=== PATIENT | female | born 1985 | race African-American/Black ===

== ENCOUNTER 2016-09-20 08:05 | Emergency (ER) | payer SELFPAY ==
[~2016-09-20] VITALS: Ht 167.6 cm; Wt 120.0 kg
[2016-09-20 08:07] VITALS: BP 133/84; PULSE 84; RESP 14; TEMP 98.2; O2SAT 98
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
[2016-09-20] MEDS ORDERED: NAPROXEN 500 MG TAB PO ONE (08:30)
--- NOTE | 2016-09-20 09:22 | RADRPT ---
EXAM DATE/TIME: 09/20/2016 08:49 [place] COMPARISON: No previous studies available for comparison. INDICATIONS : Fell down stairs pain lateral ankle. MEDICAL HISTORY : None. SURGICAL HISTORY : None. ENCOUNTER: Initial ACUITY: 2 days PAIN SCORE: 9/10 LOCATION: Left ankle. FINDINGS: Three view exam was performed of the left ankle. The bony structures are in normal alignment. No ev idence of fracture, dislocation, or soft tissue swelling. The ankle mortise is intact. No radiopaqu e foreign bodies are seen. Bony mineralization is normal. CONCLUSION: Negative for fracture or dislocation. Followup in 7-10 days is suggested if symptoms persist. Jagdish Holland MD FACR on September 20, 2016 at 9:20 Board Certified Radiologist. This report was verified electronically.
== END 2016-09-20 10:29 | disposition home or self-care (01) ==
LOC: NEPB 08:05
DX: S93.402A Sprain of unspecified ligament of left ankle, initial encounter (principal); W10.8XXA Fall (on) (from) other stairs and steps, initial encounter
CPT/HCPCS: 73610; 99283; E0113; L1906

== ENCOUNTER 2016-10-11 10:02 | Emergency (ER) | payer SELFPAY ==
[~2016-10-11] VITALS: Ht 167.6 cm; Wt 118.0 kg
[2016-10-11 10:04] VITALS: BP 144/82; PULSE 95; RESP 14; TEMP 98.1; O2SAT 99
[2016-10-11 10:39] LABS: AUTOMATED NEUTROPHIL # 4.3 TH/MM3 (1.8-7.7); BASOPHIL % 0.7 % (0.0-2.0); EOSINOPHIL # 0.1 TH/MM3 (0-0.4); EOSINOPHIL % 0.9 % (0.0-4.0); HEMATOCRIT 36.5 % (35.0-46.0); HEMO FLAGS DIFF FINAL; LYMPH % 24.1 % (9.0-44.0); LYMPHOCYTE # 1.6 TH/MM3 (1.0-4.8); MEAN CELL VOLUME 81.7 FL (80.0-100.0); MEAN CORPUSCULAR HEMOGLOBIN 27.6 PG (27.0-34.0); MEAN CORPUSCULAR HGB CONC 33.7 % (32.0-36.0); MONO % 8.6 % (0.0-8.0); NEUT % 65.7 % (16.0-70.0); PLATELET COUNT 251 TH/MM3 (150-450); RED BLOOD COUNT 4.47 MIL/MM3 (4.00-5.30); WHITE BLOOD COUNT 6.5 TH/MM3 (4.0-11.0)
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
[2016-10-11] MEDS ORDERED: ORTH1TAB PO (11:57)
[2016-10-11 12:22] LABS: BACTERIA, URINE MANY /hpf; BLOOD, URINE LARGE (NEG); COMMENT (UR) CULTURE INDICATED; CULTURE IF INDICATED CULTURE INDICATED; GLUCOSE,URINE NEG (NEG); KETONE, URINE NEG (NEG); MUCUS URINE FEW /lpf (OCC); PH, URINE 5.5 (5.0-8.5); SQUAMOUS EPITHELIAL CELL URINE 1 /hpf (0-5); URINE COLOR YELLOW (YELLW/STRAW)
[2016-10-11 12:24] LABS: NITRITE,URINE POS (NEG)
[2016-10-11] MEDS ORDERED: metroNIDAZOLE 500 MG TAB PO ONE (12:30)
[2016-10-11] MEDS ORDERED: BACT800T5 PO (12:31)
[2016-10-11 13:47] LABS: CHLAMYDIA PCR NOT DETECTED (NOT DETECT); NEISSERIA PCR NOT DETECTED (NOT DETECT)
== END 2016-10-11 12:51 | disposition home or self-care (01) ==
LOC: NED 10:02 → NEPC 12:51
DX: N93.9 Abnormal uterine and vaginal bleeding, unspecified (principal); A59.01 Trichomonal vulvovaginitis; N39.0 Urinary tract infection, site not specified; B96.20 Unspecified Escherichia coli [E. coli] as the cause of diseases classified elsewhere; R31.9 Hematuria, unspecified
CPT/HCPCS: 81001; 84703; 85025; 87077; 87086; 87186; 87210; 87491; 87591; 99284

== ENCOUNTER 2017-06-15 23:19 | Emergency (ER) | payer SELFPAY ==
[~2017-06-15 23:19] MED LIST: BACT800T5 PO; ORTH1TAB PO
[2017-06-15 23:20] VITALS: BP 125/73; PULSE 84; RESP 16; TEMP 98.1; O2SAT 98
[2017-06-15 23:46] VITALS: BP 145/80; PULSE 80; RESP 16; O2SAT 100
[2017-06-15] MEDS ORDERED: SODIUM CHLOR 0.9% 1000 ML INJ 1,000 ML IV SCH (23:55)
[2017-06-15 23:58] VITALS: O2SAT 97
[2017-06-16] MEDS ORDERED: LIDOCAINE VISCOUS 2% SOLN 15 ML UDC PO ONE
[2017-06-16] MEDS ORDERED: MORPHINE SULFATE 4 MG/ML INJ IV PUSH ONE
[2017-06-16] MEDS ORDERED: FAMOTIDINE 20 MG/2 ML VIAL IV PUSH ONE
[2017-06-16] MEDS ORDERED: ONDANSETRON HCL 4 MG/2 ML VIAL IVP ONE
[2017-06-16] MEDS ORDERED: ALUMINUM/MAGNESIUM/SIMETH 30 ML CUP PO ONE
[2017-06-16] MEDS ORDERED: SODIUM CHLORIDE 0.9% FLUSH 10 ML FLUSH IV FLUSH PRN
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
[2017-06-16 00:33] LABS: AUTOMATED NEUTROPHIL # 4.6 TH/MM3 (1.8-7.7); BASOPHIL % 0.5 % (0.0-2.0); EOSINOPHIL # 0.1 TH/MM3 (0-0.4); EOSINOPHIL % 1.4 % (0.0-4.0); HEMATOCRIT 32.5 % (35.0-46.0); HEMO FLAGS DIFF FINAL; LYMPH % 29.6 % (9.0-44.0); LYMPHOCYTE # 2.3 TH/MM3 (1.0-4.8); MEAN CORPUSCULAR HEMOGLOBIN 26.7 PG (27.0-34.0); MEAN CORPUSCULAR HGB CONC 32.6 % (32.0-36.0); MONO % 8.4 % (0.0-8.0); NEUT % 60.1 % (16.0-70.0); PLATELET COUNT 258 TH/MM3 (150-450); RED BLOOD COUNT 3.96 MIL/MM3 (4.00-5.30); RED CELL DISTRIBUTION WIDTH 16.6 % (11.6-17.2); WHITE BLOOD COUNT 7.7 TH/MM3 (4.0-11.0)
[2017-06-16 00:45] LABS: APTT (PATIENT) 23.1 SEC (24.3-30.1); PROTHROMBIN TIME - PATIENT 10.9 SEC (9.8-11.6)
[2017-06-16 01:07] LABS: ALT (GPT) 29 U/L (10-53); ANION GAP 8 MEQ/L (5-15); AST (GOT) 30 U/L (15-37); BICARBONATE 27.6 MEQ/L (21.0-32.0); BLOOD UREA NITROGEN 9 MG/DL (7-18); CHLORIDE 106 MEQ/L (98-107); GLOMERULAR FILTRATION RATE 86 ML/MIN (>89); POTASSIUM 3.2 MEQ/L (3.5-5.1); SODIUM (NA) 142 MEQ/L (136-145)
[2017-06-16 01:10] LABS: ALKALINE PHOSPHATASE 74 U/L (45-117); TOTAL BILIRUBIN ADULT 0.2 MG/DL (0.2-1.0)
[2017-06-16 01:19] LABS: BACTERIA, URINE RARE /hpf; BLOOD, URINE NEG (NEG); COMMENT (UR) CULT NOT INDICATED; CULTURE IF INDICATED CULT NOT INDICATED; GLUCOSE,URINE NEG (NEG); KETONE, URINE NEG (NEG); NITRITE,URINE NEG (NEG); SQUAMOUS EPITHELIAL CELL URINE 5 /hpf (0-5); URINE COLOR LIGHT-YELLOW (YELLW/STRAW)
[2017-06-16] MEDS ORDERED: IOHEXOL 350 MG/ML 10 ML VIAL (for RAD DIAG) IVCONTRAST ONE (01:22)
[2017-06-16] MEDS ORDERED: POTASSIUM CHLORIDE 10 MEQ CONTROLLED RELEASE TAB PO ONE (01:45)
--- NOTE | 2017-06-16 01:51 | RADRPT ---
EXAM DATE/TIME: 06/16/2017 01:17 [facility] COMPARISON: No previous studies available for comparison. INDICATIONS : Upper abdominal pain with vomiting. IV CONTRAST: 95 cc Omnipaque 350 (iohexol) IV ORAL CONTRAST: No oral contrast ingested. RADIATION DOSE: 16.89 CTDIvol (mGy) MEDICAL HISTORY : None SURGICAL HISTORY : section. ENCOUNTER: Initial ACUITY: 1 day PAIN SCALE: 1/10 LOCATION: Bilateral upper quadrant TECHNIQUE: Volumetric scanning of the abdomen and pelvis was performed. Using automated exposure control and ad justment of the mA and/or kV according to patient size, radiation dose was kept as low as reasonably achievable to obtain optimal diagnostic quality images. DICOM format image data is available electro nically for review and comparison. FINDINGS: LOWER LUNGS: The visualized lower lungs are clear. LIVER: Homogeneous density without lesion. There is no dilation of the biliary tree. No calcified gallston es. SPLEEN: Normal size without lesion. PANCREAS: Within normal limits. KIDNEYS: Normal in size and shape. 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 There i s no concerning mass, stone or hydronephrosis. ADRENAL GLANDS: Within normal limits. VASCULAR: There is no aortic aneurysm. BOWEL/MESENTERY: The stomach, small bowel, and colon demonstrate no acute abnormality. There is no free intraperitone al air or fluid. Normal appendix. ABDOMINAL WALL: Within normal limits. RETROPERITONEUM: There is no lymphadenopathy. BLADDER: No wall thickening or mass. REPRODUCTIVE: Within normal limits. INGUINAL: There is no lymphadenopathy or hernia. MUSCULOSKELETAL: Within normal limits for patient age. CONCLUSION: 1. No acute abnormality demonstrated. 2. Incidentally seen benign angiomyolipoma of the upper pole of the left kidney. Talha Stringer MD on June 16, 2017 at 1:46 Board Certified Radiologist. This report was verified electronically.
[2017-06-16] MEDS ORDERED: CARA1SUS3 PO (02:03)
[2017-06-16] MEDS ORDERED: ZOFR4TAB PO (02:04)
== END 2017-06-16 02:35 | disposition home or self-care (01) ==
LOC: NEPC 23:19
DX: R10.10 Upper abdominal pain, unspecified (principal); R11.2 Nausea with vomiting, unspecified; D17.71 Benign lipomatous neoplasm of kidney
CPT/HCPCS: 74177; 80053; 81001; 83690; 84703; 85025; 85610; 85730; 96361; 96374; 96375; 99285; J2270; J2405; J7030; Q9967

== ENCOUNTER 2017-07-27 07:55 | Emergency (ER) | payer MEDICAID ==
[~2017-07-27] VITALS: Ht 167.6 cm; Wt 107.0 kg
[~2017-07-27 07:55] MED LIST changes: -BACT800T5 PO; +CARA1SUS3 PO; -ORTH1TAB PO; +ZOFR4TAB PO
[2017-07-27 08:08] VITALS: BP 116/72; PULSE 63; RESP 16; TEMP 97.6
[2017-07-27 08:36] VITALS: BP 99/67; PULSE 60; RESP 18; TEMP 98.1; O2SAT 99
[2017-07-27] MEDS ORDERED: SODIUM CHLOR 0.9% 1000 ML INJ 1,000 ML IV SCH (09:03)
[2017-07-27] MEDS ORDERED: KETOROLAC TROMETHAMINE 30 MG/ML (IVP) VIAL IVP ONE (09:15)
[2017-07-27] MEDS ORDERED: ONDANSETRON HCL 4 MG/2 ML VIAL IVP ONE (09:15)
[2017-07-27] MEDS ORDERED: SODIUM CHLORIDE 0.9% FLUSH 10 ML FLUSH IV FLUSH PRN (09:15)
[2017-07-27 09:47] LABS: AUTOMATED NEUTROPHIL # 2.5 TH/MM3 (1.8-7.7); BASOPHIL % 0.7 % (0.0-2.0); EOSINOPHIL # 0.1 TH/MM3 (0-0.4); EOSINOPHIL % 2.4 % (0.0-4.0); HEMATOCRIT 32.6 % (35.0-46.0); HEMO FLAGS DIFF FINAL; LYMPH % 38.1 % (9.0-44.0); LYMPHOCYTE # 1.9 TH/MM3 (1.0-4.8); MEAN CELL VOLUME 83.1 FL (80.0-100.0); MEAN CORPUSCULAR HEMOGLOBIN 27.1 PG (27.0-34.0); MEAN CORPUSCULAR HGB CONC 32.7 % (32.0-36.0); MONO % 9.9 % (0.0-8.0); NEUT % 48.9 % (16.0-70.0); PLATELET COUNT 248 TH/MM3 (150-450); RED BLOOD COUNT 3.93 MIL/MM3 (4.00-5.30); RED CELL DISTRIBUTION WIDTH 15.4 % (11.6-17.2); WHITE BLOOD COUNT 5.1 TH/MM3 (4.0-11.0)
--- NOTE | 2017-07-27 10:12 | RADRPT ---
EXAM DATE/TIME: 07/27/2017 09:45 [facility] COMPARISON: No previous studies available for comparison. INDICATIONS : Pelvic pain. MEDICAL HISTORY : Pelvic pain. SURGICAL HISTORY : section. Right hand surgery. Left shoulder surgery. ENCOUNTER: Initial ACUITY: 1 day PAIN SCORE: 5/10 LOCATION: Bilateral pelvis MEASUREMENTS: UTERUS: 9.3 x 4.3 x 4.7 cm ENDOMETRIAL STRIPE: 6 mm RIGHT OVARY: 3.7 x 2.8 x 3.0 cm LEFT OVARY: 3.3 x 2.4 x 2.3 cm FINDINGS: UTERUS: The myometrium has homogeneous echotexture without mass. RIGHT OVARY: Ovary contains no mass or significant cystic lesion.Blood flow is intact. LEFT OVARY: Ovary contains no mass or significant cystic lesion. Blood flow is intact. MISCELLANEOUS: No free fluid. CONCLUSION: 1. Negative examination. Kendrick Holland MD on July 27, 2017 at 10:10 Board Certified Radiologist. This report was verified electronically.
[2017-07-27 10:13] LABS: ANION GAP 8 MEQ/L (5-15); AST (GOT) 12 U/L (15-37); BICARBONATE 26.9 MEQ/L (21.0-32.0); BLOOD UREA NITROGEN 7 MG/DL (7-18); CHLORIDE 105 MEQ/L (98-107); GLOMERULAR FILTRATION RATE 93 ML/MIN (>89); POTASSIUM 3.4 MEQ/L (3.5-5.1); SODIUM (NA) 140 MEQ/L (136-145)
[2017-07-27 10:14] LABS: ALT (GPT) 20 U/L (10-53)
[2017-07-27 10:16] LABS: ALKALINE PHOSPHATASE 75 U/L (45-117); TOTAL BILIRUBIN ADULT 0.3 MG/DL (0.2-1.0)
[2017-07-27 11:05] LABS: BACTERIA, URINE RARE /hpf; BLOOD, URINE NEG (NEG); COMMENT (UR) CULTURE INDICATED; CULTURE IF INDICATED CULTURE INDICATED; GLUCOSE,URINE NEG (NEG); KETONE, URINE NEG (NEG); NITRITE,URINE NEG (NEG); SQUAMOUS EPITHELIAL CELL URINE 3 /hpf (0-5); URINE COLOR LIGHT-YELLOW (YELLW/STRAW)
[2017-07-27] MEDS ORDERED: CIPR-9 PO (11:49)
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
[2017-07-27 12:29] VITALS: BP 107/58
== END 2017-07-27 12:28 | disposition home or self-care (01) ==
LOC: NEPC 07:55
DX: N30.00 Acute cystitis without hematuria (principal)
CPT/HCPCS: 76856; 80053; 81001; 84703; 85025; 87086; 93975; 96361; 96374; 96375; 99285; J1885; J2405; J7030

== ENCOUNTER 2017-07-28 02:03 | Emergency (ER) | payer MEDICAID ==
[~2017-07-28] VITALS: Ht 167.6 cm; Wt 105.0 kg
[~2017-07-28 02:03] MED LIST changes: +CIPR-9 PO
[2017-07-28 02:04] VITALS: BP 171/103; PULSE 117; RESP 18; TEMP 97.9; O2SAT 98
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
[2017-07-28] MEDS ORDERED: ONDANSETRON HCL 4 MG/2 ML VIAL IV PUSH ONE (02:45)
[2017-07-28] MEDS ORDERED: SODIUM CHLOR 0.9% 1000 ML INJ 1,000 ML IV ONE (02:45)
--- NOTE | 2017-07-28 03:17 | RADRPT ---
EXAM DATE/TIME: 07/28/2017 02:48 [facility] COMPARISON: CT ABDOMEN & PELVIS W CONTRAST, June 16, 2017, 1:17. INDICATIONS : Abdomen pain with nausea and vomiting. ORAL CONTRAST: No oral contrast ingested. RADIATION DOSE: 16.64 CTDIvol (mGy) MEDICAL HISTORY : None SURGICAL HISTORY : section. ENCOUNTER: Initial ACUITY: 1 day PAIN SCALE: 6/10 LOCATION: Bilateral abdomen TECHNIQUE: Volumetric scanning of the abdomen and pelvis was performed. Using automated exposure control and ad justment of the mA and/or kV according to patient size, radiation dose was kept as low as reasonably achievable to obtain optimal diagnostic quality images. DICOM format image data is available electro nically for review and comparison. FINDINGS: LOWER LUNGS: The visualized lower lungs are clear. LIVER: Homogeneous density without lesion. There is no dilation of the biliary tree. No calcified gallston es. SPLEEN: Normal size without lesion. PANCREAS: Within normal limits. KIDNEYS: Normal in size and shape. There is no mass, stone, or hydronephrosis other than stable left-sided an giomyolipoma. ADRENAL GLANDS: Within normal limits. VASCULAR: There is no aortic aneurysm. BOWEL/MESENTERY: The stomach, small bowel, and colon demonstrate no acute abnormality. There is no free intraperitone al air or fluid. ABDOMINAL WALL: Within normal limits. RETROPERITONEUM: There is no lymphadenopathy. BLADDER: No wall thickening or mass. REPRODUCTIVE: Within normal limits. The left ovary is again slightly into superiorly displaced anterior to the ilio psoas muscle, but unchanged. INGUINAL: There is no lymphadenopathy or hernia. MUSCULOSKELETAL: Within normal limits for patient age. CONCLUSION: Normal examination. The appendix is normal. Rod Flores MD on July 28, 2017 at 3:13 Board Certified Radiologist. This report was verified electronically.
== END 2017-07-28 04:08 | disposition home or self-care (01) ==
LOC: NEPE 02:03
DX: K29.00 Acute gastritis without bleeding (principal); Z79.899 Other long term (current) drug therapy
CPT/HCPCS: 74176; 96374; 99285; J2405; J7030

== ENCOUNTER 2018-01-05 18:57 | Emergency (ER) | payer SELFPAY ==
[~2018-01-05] VITALS: Ht 170.2 cm; Wt 104.5 kg
[2018-01-05 19:18] VITALS: BP 116/67; PULSE 76; RESP 16; TEMP 98; O2SAT 99
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
[2018-01-05] MEDS ORDERED: SODIUM CHLORIDE 0.9% FLUSH 10 ML FLUSH IV FLUSH PRN (19:45)
[2018-01-05 20:54] LABS: BASOPHIL # 0.1 TH/MM3 (0-0.2); BASOPHIL % 1.2 % (0.0-2.0); EOSINOPHIL # 0.3 TH/MM3 (0-0.4); EOSINOPHIL % 4.7 % (0.0-4.0); HEMATOCRIT 31.3 % (35.0-46.0); HEMOGLOBIN 10.3 GM/DL (11.6-15.3); LYMPH % 33.7 % (9.0-44.0); MEAN CELL VOLUME 84.8 FL (80.0-100.0); MEAN CORPUSCULAR HGB CONC 33.1 % (32.0-36.0); MEAN PLATELET VOLUME 9.3 FL (7.0-11.0); MONO % 9.9 % (0.0-8.0); MONOCYTE # 0.6 TH/MM3 (0-0.9); NEUT % 50.5 % (16.0-70.0); PLATELET COUNT 274 TH/MM3 (150-450); RED BLOOD COUNT 3.69 MIL/MM3 (4.00-5.30); RED CELL DISTRIBUTION WIDTH 17.1 % (11.6-17.2); WHITE BLOOD COUNT 5.9 TH/MM3 (4.0-11.0)
[2018-01-05 20:56] LABS: AMORPHOUS SEDIMENT, URINE RARE; BACTERIA, URINE RARE /hpf; BILIRUBIN, URINE NEG (NEG); BLOOD, URINE NEG (NEG); GLUCOSE,URINE NEG (NEG); KETONE, URINE NEG (NEG); MUCUS URINE FEW /lpf (OCC); NITRITE,URINE NEG (NEG); SQUAMOUS EPITHELIAL CELL URINE 22 /hpf (0-5); URINE COLOR YELLOW (YELLW/STRAW); URINE LEUKOCYTE ESTERASE LARGE (NEG)
[2018-01-05 21:11] LABS: ALBUMIN 3.4 GM/DL (3.4-5.0); AST (GOT) 16 U/L (15-37); BICARBONATE 27.7 MEQ/L (21.0-32.0); BLOOD UREA NITROGEN 8 MG/DL (7-18); CALCIUM 8.5 MG/DL (8.5-10.1); CHLORIDE 107 MEQ/L (98-107); CREATININE 0.93 MG/DL (0.50-1.00); GLOMERULAR FILTRATION RATE 86 ML/MIN (>89); GLUCOSE,RANDOM 95 MG/DL (74-106); SODIUM (NA) 143 MEQ/L (136-145)
[2018-01-05 21:16] LABS: ALKALINE PHOSPHATASE 70 U/L (45-117); ALT (GPT) 19 U/L (10-53); TOTAL BILIRUBIN ADULT 0.3 MG/DL (0.2-1.0); TOTAL PROTEIN 7.1 GM/DL (6.4-8.2)
[2018-01-05 21:50] VITALS: RESP 18; TEMP 97
== END 2018-01-05 23:09 | disposition home or self-care (01) ==
LOC: NEPD 18:57
DX: R10.2 Pelvic and perineal pain (principal); N93.9 Abnormal uterine and vaginal bleeding, unspecified
CPT/HCPCS: 80053; 81001; 84702; 84703; 85025; 87086; 87210; 87491; 87591; 99284

== ENCOUNTER 2018-03-07 06:01 | Emergency (ER) | payer SELFPAY ==
[~2018-03-07] VITALS: Ht 170.2 cm; Wt 78.0 kg
[2018-03-07 06:10] VITALS: BP 139/82; PULSE 91; RESP 16; TEMP 98.1; O2SAT 99
[2018-03-07] MEDS ORDERED: SODIUM CHLOR 0.9% 1000 ML INJ 1,000 ML IV SCH (07:03)
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
[2018-03-07] MEDS ORDERED: KETOROLAC TROMETHAMINE 30 MG/ML (IVP) VIAL IV PUSH ONE (07:15)
[2018-03-07] MEDS ORDERED: SODIUM CHLORIDE 0.9% FLUSH 10 ML FLUSH IV FLUSH PRN (07:15)
[2018-03-07] MEDS ORDERED: METOCLOPRAMIDE HCL 10 MG/2 ML VIAL IV PUSH ONE (07:15)
[2018-03-07 08:06] LABS: BASOPHIL # 0.1 TH/MM3 (0-0.2); BASOPHIL % 0.6 % (0.0-2.0); EOSINOPHIL # 0.1 TH/MM3 (0-0.4); EOSINOPHIL % 1.2 % (0.0-4.0); HEMATOCRIT 35.2 % (35.0-46.0); HEMOGLOBIN 11.4 GM/DL (11.6-15.3); LYMPH % 24.5 % (9.0-44.0); LYMPHOCYTE # 2.2 TH/MM3 (1.0-4.8); MEAN CELL VOLUME 83.6 FL (80.0-100.0); MEAN CORPUSCULAR HEMOGLOBIN 27.1 PG (27.0-34.0); MEAN CORPUSCULAR HGB CONC 32.4 % (32.0-36.0); MEAN PLATELET VOLUME 9.3 FL (7.0-11.0); MONO % 5.9 % (0.0-8.0); MONOCYTE # 0.5 TH/MM3 (0-0.9); NEUT % 67.8 % (16.0-70.0); PLATELET COUNT 249 TH/MM3 (150-450); RED BLOOD COUNT 4.21 MIL/MM3 (4.00-5.30); WHITE BLOOD COUNT 8.8 TH/MM3 (4.0-11.0)
[2018-03-07 08:15] LABS: INTERNATIONAL NORMALIZED RATIO 1.1 RATIO; PROTHROMBIN TIME - PATIENT 10.9 SEC (9.8-11.6)
[2018-03-07 08:26] LABS: ALKALINE PHOSPHATASE 75 U/L (45-117); TOTAL BILIRUBIN ADULT 0.3 MG/DL (0.2-1.0); TOTAL PROTEIN 7.1 GM/DL (6.4-8.2)
[2018-03-07 08:27] LABS: ALBUMIN 3.3 GM/DL (3.4-5.0); ALT (GPT) 50 U/L (10-53); AST (GOT) 94 U/L (15-37); BICARBONATE 22.6 MEQ/L (21.0-32.0); BLOOD UREA NITROGEN 9 MG/DL (7-18); CALCIUM 8.4 MG/DL (8.5-10.1); CHLORIDE 110 MEQ/L (98-107); CREATININE 0.96 MG/DL (0.50-1.00); GLOMERULAR FILTRATION RATE 82 ML/MIN (>89); GLUCOSE,RANDOM 108 MG/DL (74-106); SODIUM (NA) 142 MEQ/L (136-145)
--- NOTE | 2018-03-07 08:57 | RADRPT ---
EXAM DATE: 03/07/2018 8:31 AM EDT AGE/SEX: 33 years / Female INDICATIONS: Right flank pain, nausea, vomiting. CLINICAL DATA: This is the patient's initial encounter. Patient reports that signs and symptoms have been present for 1 day and indicates a pain score of 4/10. MEDICAL/SURGICAL HISTORY: None. section. RADIATION DOSE: 8.46 CTDI (mGy) COMPARISON: [facility] – [place], CT ABDOMEN & PELVIS W/O CONTRAST, 07/28/2017. . TECHNIQUE: Multiple contiguous axial images were obtained through the abdomen. Images were obtained using multiple row detector helical technique. Using automated exposure control and adjustment of the mA and/or kV according to patient size, radiation dose was kept as low as reasonably achievable to o btain optimal diagnostic quality images. DICOM format image data is available electronically for rev iew and comparison. FINDINGS: Lower Lungs: The visualized lower lungs are clear. Liver: The liver has a homogeneous density without space-occupying lesion. There is no dilation of th e biliary tree. Spleen: Homogeneous density without enlargement. Pancreas: Unremarkable without mass or calcification. Kidneys: In the left kidney, there is a stable, 1.7 cm low-density lesion in the upper pole cortex w hich contains fat density and is most characteristic of a benign angiomyolipoma. Otherwise, no stones or hydronephrosis. Adrenal Glands: Unremarkable. Aorta: The aorta and proximal iliac vessels are grossly unremarkable without aneurysmal dilation. Bowel/Mesentery: The bowel loops are grossly unremarkable. The cecum and sigmoid colon have a normal configuration. Appendix is identified and is radiographically normal Abdominal Wall: Intact. Retroperitoneum: No evidence of adenopathy in the retrocrural, para-aortic, or deep pelvic regions. Bladder: Contours are smooth. Reproductive Organs: Both ovaries are somewhat prominent measuring approximately 4 to [address] However, the configuration is completely stable from the prior exam Inguinal: The inguinal region is unremarkable without evidence of adenopathy. Bony Structures: Unremarkable. CONCLUSION: 1. No acute intraperitoneal or pelvic process to explain current clinical symptoms. Specifically, no hydronephrosis, or nephrolithiasis. The appendix is normal. 2. 1.7 cm probable angiomyolipoma in the upper pole of the left kidney. This is a benign lesion, unc hanged from prior. 3. Both ovaries are somewhat prominent measuring between 4 and 5 cm in diameter but completely stabl e from the prior. Again, benign findings. Electronically signed by: Oleg Singer MD 03/07/2018 8:56 AM EDT
[2018-03-07 10:04] LABS: BACTERIA, URINE RARE /hpf; BILIRUBIN, URINE NEG (NEG); BLOOD, URINE NEG (NEG); GLUCOSE,URINE NEG (NEG); HYALINE CAST, URINE 1 /lpf (RARE); KETONE, URINE NEG (NEG); NITRITE,URINE NEG (NEG); SQUAMOUS EPITHELIAL CELL URINE 3 /hpf (0-5); URINE COLOR YELLOW (YELLW/STRAW); URINE LEUKOCYTE ESTERASE TRACE (NEG)
[2018-03-07] MEDS ORDERED: MACR100C2 PO (10:28)
[2018-03-07] MEDS ORDERED: cefTRIAXone INJ 1,000 MG in SODIUM CHLORIDE 0.9% INJ 100 ML IV ONE (10:30)
[2018-03-07 10:40] VITALS: BP 124/80
== END 2018-03-07 11:20 | disposition home or self-care (01) ==
LOC: NEPC 06:01
DX: R10.31 Right lower quadrant pain (principal); D17.71 Benign lipomatous neoplasm of kidney; N39.0 Urinary tract infection, site not specified; R11.2 Nausea with vomiting, unspecified
CPT/HCPCS: 74176; 80053; 81001; 83690; 84703; 85025; 85610; 85730; 96361; 96374; 96375; 99284; J0696; J1885; J2765; J7030